=== PATIENT | male | born 1955 ===

== ENCOUNTER 2022-11-05 06:06 | Day surgery (SDC) | payer OTHER ==
[~2022-11-05] VITALS: Ht 179 cm; Wt 80.0 kg
[2022-11-05] VITALS (13 sets, daily range): BP systolic 112–128; BP diastolic 71–91
--- NOTE | 2022-11-05 07:36 | NUR ---
PATIENT GAVE HIS GOLD RING TO HIS FOR SAFE KEEPING. GLASSES BROUGHT TO PACU FOR SAFE KEEPING DURING SURGERY.
--- NOTE | 2022-11-05 11:30 | NUR ---
REPORT RECIEVED. PT RESTING WITH EYES CLOSED. GROGGY BUT DENIES PAIN. ON ROOM AIR. VSS. DRESSINGS C/D/I ICE PACK IN PLACE
--- NOTE | 2022-11-05 12:15 | NUR ---
PT ONLY COMPLAINS OF GROGGINESS. TOLERATING PO FLUIDS. REFUSES ANYTHING TO EAT. DENIES PAIN.
--- NOTE | 2022-11-05 12:49 | NUR ---
1Patient up to Ambulate independently. Gait steady. Discharge instructions reviewed with patient. Patient verbalizes understanding. Copy given to patient to take home. Discharged via wheelchair to private car for ride home. Dressing to procedure site clean, dry, intact with no visible drainage, swelling, erythema or bruising noted on abdomen Scrotal support spotted with blood from urethera. Dr nava notified and okay to d/c. pt instruced to return to ER if having heavy bleeding from urethera. scrotal support changed.
== END 2022-11-05 12:52 | disposition home or self-care (01) ==
LOC: ORSCMMR 06:06 → ORD 07:30 → ORSCMMR 07:30
PROVIDERS: Surgery
PROC: 8E0W4CZ Robotic Assisted Procedure of Trunk Region, Percutaneous Endoscopic Approach (ICD-10-PCS; principal; 2022-11-05 07:30)
PROC: 0YUA4JZ Supplement Bilateral Inguinal Region with Synthetic Substitute, Percutaneous Endoscopic Approach (ICD-10-PCS; principal; 2022-11-05 07:30)
DX: K40.30 Unilateral inguinal hernia, with obstruction, without gangrene, not specified as recurrent (principal); K40.90 Unilateral inguinal hernia, without obstruction or gangrene, not specified as recurrent; N40.0 Benign prostatic hyperplasia without lower urinary tract symptoms
CPT/HCPCS: 49650; S2900; C1781; J0690; J1100; J1885; J2250; J2370; J2405; J2704; J2795; J3010; J7120

== ENCOUNTER 2022-11-17 10:14 | Emergency (ER) | payer OTHER ==
[~2022-11-17] VITALS: Ht 182.9 cm; Wt 77.1 kg
[2022-11-17 10:29] VITALS: BP 143/73
[2022-11-17 10:54] LABS: BASOPHILS ABSOLUTE AUTO 0.02 K/mm3 (0.00-0.23); BASOPHILS PERCENT AUTO 0 % (0-2); EOSINOPHILS ABSOLUTE AUTO 0.06 K/mm3 (0.00-0.68); EOSINOPHILS PERCENT AUTO 1 % (0-6); Hematocrit 44.6 % (37.0-53.0); Hemoglobin 15.2 g/dL (13.5-17.5); IMMATURE GRAN ABSOLUTE AUTO 0.01 K/mm3 (0.00-0.10); IMMATURE GRAN PERCENT AUTO 0 % (0-1); LYMPHOCYTES ABSOLUTE AUTO 0.58 K/mm3 (0.84-5.20); LYMPHOCYTES PERCENT AUTO 8 % (21-46); MONOCYTES ABSOLUTE AUTO 0.33 K/mm3 (0.16-1.47); MONOCYTES PERCENT AUTO 4 % (4-13); Mean Corpuscular HGB Conc 34.1 g/dL (31.5-36.5); Mean Corpuscular Volume 88 fL (80-100); Mean Platelet Volume 10.3 fL (9.1-12.4); NEUTROPHILS ABSOLUTE AUTO 6.45 K/mm3 (1.96-9.15); NEUTROPHILS PERCENT AUTO 87 % (41-73); Platelet Count 180 K/mm3 (150-400); RDW Standard Deviation 41.7 fL (35.1-46.3); Red Blood Cell Count 5.07 M/mm3 (4.30-5.90); White Blood Cell Count 7.45 K/mm3 (4.00-11.30)
[2022-11-17 11:06] LABS: Albumin, Blood 3.1 g/dL (3.4-5.0); Albumin/Globulin Ratio 1.1 (0.8-1.8); Bilirubin, Total 0.6 mg/dL (0.1-1.0); Bun/Creatinine Ratio 34.5 (12.0-20.0); Calcium, Blood 7.9 mg/dL (8.5-10.1); Creatinine, Blood 0.87 mg/dL (0.60-1.20); Globulin, Blood 2.9 g/dL (2.2-4.0); Magnesium, Blood 1.9 mg/dL (1.6-2.4); Potassium, Blood 4.3 mmol/L (3.5-5.5)
[2022-11-17] MEDS ORDERED: ONDA4ODT MM (11:47)
[2022-11-17] MEDS ORDERED: DRAMAMINE25 M1 PO (11:47)
== END 2022-11-17 12:00 | disposition home or self-care (01) ==
LOC: ER 10:14
PROVIDERS: Emergency Medicine
DX: H81.10 Benign paroxysmal vertigo, unspecified ear (principal)
CPT/HCPCS: 80053; 83735; 85025; 93005; 93010; 99284-25